=== PATIENT | male | born 1960 | race Caucasian/White ===

== ENCOUNTER 2017-07-10 05:32 | Day surgery (SDC) | payer OTHER ==
[2017-07-10] MEDS ORDERED: SURFAK240 MG PO (08:59)
[2017-07-10] MEDS ORDERED: PERCOCET 5-3251 EACH PO (08:59)
[2017-07-10] MEDS ORDERED: POLY119PG PO (08:59)
== END 2017-07-10 11:45 | disposition home or self-care (01) ==
LOC: CIR.AMB 05:32
DX: K40.90 Unilateral inguinal hernia, without obstruction or gangrene, not specified as recurrent (principal); K42.0 Umbilical hernia with obstruction, without gangrene; K43.6 Other and unspecified ventral hernia with obstruction, without gangrene